=== PATIENT | male | born 1985 | race African-American/Black ===

== ENCOUNTER 2016-07-20 00:27 | Emergency (ER) | payer SELFPAY ==
[~2016-07-20] VITALS: Ht 182.9 cm; Wt 117.3 kg
[~2016-07-20 00:27] MED LIST: AMOXICILLIN500 MG PO; AUGMENTIN875 MG PO; FIORICET WI1 CAPSULE PO; MOTRIN800 MG PO; NAPROSYN500 MG PO; NOHOMEMEDS; No Home Meds; ROBITUSSIN AC,T10 ML PO; TYLENOL EXTRA500 MG PO; TYLENOL SO167 MG/5 M PO; VALIUM5 MG PO; ZOFRAN4 MG PO; ZYRTEC10 M3 PO
[2016-07-20] MEDS ORDERED: NAPROSYN500 MG PO (01:54)
[2016-07-20 03:02] VITALS: BP 130/82
== END 2016-07-20 03:34 | disposition home or self-care (01) ==
LOC: EME 00:27
PROC: 2W39X1Z Immobilization of Left Upper Extremity using Splint (ICD-10-PCS; principal; 2016-07-20)
DX: S63.502A Unspecified sprain of left wrist, initial encounter (principal); F17.200 Nicotine dependence, unspecified, uncomplicated; W01.0XXA Fall on same level from slipping, tripping and stumbling without subsequent striking against object, initial encounter
CPT/HCPCS: 73110; 99281; 99283

== ENCOUNTER 2016-10-16 23:46 | Emergency (ER) | payer OTHER ==
[~2016-10-16] VITALS: Ht 182.9 cm; Wt 120.2 kg
[2016-10-17] MEDS ORDERED: NORCO 5/3251 TABLET PO (01:11)
[2016-10-17] MEDS ORDERED: NAPROSYN500 MG PO (01:11)
[2016-10-17 01:32] VITALS: BP 142/111
== END 2016-10-17 01:51 | disposition home or self-care (01) ==
LOC: EME 23:46
PROC: 2W3DX1Z Immobilization of Left Lower Arm using Splint (ICD-10-PCS; principal; 2016-10-16)
DX: S63.502A Unspecified sprain of left wrist, initial encounter (principal); W01.0XXA Fall on same level from slipping, tripping and stumbling without subsequent striking against object, initial encounter; Y99.0 Civilian activity done for income or pay; Z72.0 Tobacco use
CPT/HCPCS: 73110; 99281; 99284

== ENCOUNTER 2017-03-01 14:52 | Emergency (ER) | payer SELFPAY ==
[~2017-03-01] VITALS: Ht 182.9 cm; Wt 121.3 kg
[~2017-03-01 14:52] MED LIST changes: +NORCO 5/3251 TABLET PO
[2017-03-01] MEDS ORDERED: VALIUM5 MG PO (17:16)
[2017-03-01] MEDS ORDERED: INDOCIN50 MG PO (17:16)
[2017-03-01 17:40] VITALS: BP 120/79
== END 2017-03-01 17:45 | disposition home or self-care (01) ==
LOC: EME 14:52
DX: S29.011A Strain of muscle and tendon of front wall of thorax, initial encounter (principal); S16.1XXA Strain of muscle, fascia and tendon at neck level, initial encounter; J45.909 Unspecified asthma, uncomplicated; F17.200 Nicotine dependence, unspecified, uncomplicated
CPT/HCPCS: 71020; 93005; 99281; 99284; J1885